=== PATIENT | male | born 1950 | race Caucasian/White ===

== ENCOUNTER 2023-01-02 13:41 | Inpatient (IN) | payer OTHER ==
[~2023-01-02] VITALS: Ht 172.7 cm; Wt 97.7 kg
[~2023-01-02 13:41] MED LIST: ASPI81CH43; GABA-339 PO; LISI10TA34 PO; METF-370 PO; SIMV10TA20 PO; TRAM50TA2
[2023-01-02] MEDS ORDERED: MORPHINE SULFATE 4 MG/ML SYR/VIAL IV ONE (13:45)
[2023-01-02] MEDS ORDERED: ASPirin 81 mg TAB PO ONE (13:45)
[2023-01-02] MEDS ORDERED: ONDANSETRON HCL 4 MG/2 ML VIAL IV ONE (13:45)
[2023-01-02 14:03] LABS: Basophils # (auto) 0 10 ^3/uL (0-0.2); Basophils % (auto) 0.5 % (0.0-2.0); Eosinophils # (auto) 0.1 10 ^3/uL (0-0.8); Eosinophils % (auto) 1.5 % (0.0-7.0); Hematocrit 39.8 % (41.0-53.0); Hemoglobin 13.3 g/dL (13.5-17.5); Lymphocytes # (auto) 0.8 10 ^3/uL (0.4-5.4); Lymphocytes % (auto) 11.9 % (10.0-50.0); Mean Corpuscular Hemoglobin 28.4 pg (28.0-32.0); Mean Corpuscular Hgb Conc. 33.5 g/dL (32.0-36.0); Mean Corpuscular Volume 84.8 fL (80.0-100.0); Monocytes # (auto) 0.6 10 ^3/uL (0-1.3); Monocytes % (auto) 7.9 % (0.0-12.0); Neutrophils # (auto) 5.5 10 ^3/uL (1.6-8.6); Neutrophils % (auto) 78.2 % (37.0-80.0); Nucleated Red Blood Cells % 0.1 %; Red Blood Cells 4.69 10^6/uL (4.5-5.90); White Blood Cell 7.1 10^3/uL (4.4-10.8)
[2023-01-02 14:22] LABS: INR 1.1 (0.9-1.15); Partial Thromboplastin Time 28.5 SEC (24.5-34.5); Prothrombin Time 11.5 sec (9.3-11.8)
[2023-01-02 14:31] LABS: Albumin 3.7 g/dL (3.4-5.0); Calcium 8.4 mg/dL (8.5-10.1); Magnesium 2.7 mg/dL (1.6-2.6); Potassium 3.8 mmol/L (3.5-5.1)
[2023-01-02 14:36] LABS: BUN/Creatinine Ratio 14.1 (10.0-20.0); Bilirubin, Total 0.6 mg/dL (0.2-1.0)
[2023-01-02] MEDS ORDERED: cloNIDine HCL 0.1 MG TAB PO ONE (15:00)
[2023-01-02 16:30] LABS: Urine Bacteria NONE SEEN /hpf (None Seen); Urine Blood Negative /uL (Negative); Urine Clarity Clear (Clear); Urine Color Colorless (Yellow); Urine Protein, UAD Negative (Negative); Urine Specific Gravity 1.008 (1.001-1.035); Urine Urobilinogen Normal (Negative); Urine WBC <1 /hpf (0 - 3); Urine pH 6.5 (5.0-8.0)
[2023-01-02] MEDS ORDERED: hydrALAZINE HCL 20 MG/ML VL IV PRN ×2 (16:30→18:30)
[2023-01-02] MEDS ORDERED: NITROGLYCERIN 0.4 MG SL TAB SL PRN (16:30)
[2023-01-02] MEDS ORDERED: MORPHINE SULFATE INJ 2 MG/ml SYRG IV PRN (16:30)
[2023-01-02 16:55] LABS: Cholesterol 117 mg/dL (< 200)
[2023-01-02 16:57] LABS: HDL Cholesterol 53 mg/dL (40-59); LDL Cholesterol 58 mg/dL (< 100); Triglycerides 74 mg/dL (< 150)
[2023-01-02 18:20] VITALS: PULSE 62; RESP 12; O2SAT 96
[2023-01-02] MEDS ORDERED: ASPirin 325 MG TAB PO ONE ×2 (18:30→19:15)
[2023-01-02] MEDS ORDERED: DEXTROSE (50%) 50ML SYRG IV PRN (18:30)
[2023-01-02] MEDS: SODIUM CHLORIDE 0.9% 1,000 ML IV SCH (18:51)
[2023-01-02 20:00] LABS: Cholesterol 129 mg/dL (< 200)
[2023-01-02 20:02] LABS: HDL Cholesterol 52 mg/dL (40-59); LDL Cholesterol 62 mg/dL (< 100); Triglycerides 69 mg/dL (< 150)
[2023-01-02] MEDS ORDERED: ATORVASTATIN 20 MG TAB PO SCH (22:00)
[2023-01-02] MEDS: ATORVASTATIN 20 MG TAB PO SCH (22:08)
[2023-01-02] MEDS: METOPROLOL TARTRATE 25 MG TAB PO SCH (22:33)
[2023-01-03] VITALS (11 sets, daily range): BP systolic 122–178; BP diastolic 36–79; PULSE 52–68; RESP 12–18; TEMP 97.3–98.5; O2SAT 94–98
[2023-01-03] MEDS: ACCU-CHEK COMFORT CURVE STRIP VI SCH ×4 (00:30→18:20)
[2023-01-03] MEDS: InsuLIN REG 1unit/0.01ml Soln (100units/ml) SC SCH ×4 (00:30→18:20)
[2023-01-03] MEDS ORDERED: ADENOSINE 92 MG in GIVE UN-DILUTED 0 ML IV ONE (08:00)
[2023-01-03] MEDS: SODIUM CHLORIDE 0.9% 1,000 ML IV SCH ×2 (09:00→23:33)
[2023-01-03] MEDS ORDERED: ASPirin 81 mg TAB PO SCH (10:00)
[2023-01-03] MEDS: ENOXAPARIN SOD 40 MG/0.4 ML SYRINGE SC SCH (10:03)
[2023-01-03] MEDS: ASPirin 81 mg TAB PO SCH (10:04)
[2023-01-03] MEDS: LISINOPRIL 10 MG TAB PO SCH (10:27)
[2023-01-03] MEDS: METOPROLOL TARTRATE 25 MG TAB PO SCH ×2 (10:28→21:36)
[2023-01-03 10:41] LABS: Basophils # (auto) 0.1 10 ^3/uL (0-0.2); Basophils % (auto) 1.2 % (0.0-2.0); Eosinophils # (auto) 0.2 10 ^3/uL (0-0.8); Eosinophils % (auto) 3.1 % (0.0-7.0); Hematocrit 36.9 % (41.0-53.0); Lymphocytes # (auto) 1.2 10 ^3/uL (0.4-5.4); Lymphocytes % (auto) 23.4 % (10.0-50.0); Mean Corpuscular Hemoglobin 27.7 pg (28.0-32.0); Mean Corpuscular Hgb Conc. 32.5 g/dL (32.0-36.0); Mean Corpuscular Volume 85.2 fL (80.0-100.0); Monocytes # (auto) 0.5 10 ^3/uL (0-1.3); Monocytes % (auto) 8.9 % (0.0-12.0); Neutrophils # (auto) 3.2 10 ^3/uL (1.6-8.6); Neutrophils % (auto) 63.4 % (37.0-80.0); Nucleated Red Blood Cells % 0.1 %; Red Blood Cells 4.33 10^6/uL (4.5-5.90); Red Cell Distribution Width 15.5 % (11.8-14.3); White Blood Cell 5.1 10^3/uL (4.4-10.8)
[2023-01-03 11:08] LABS: Albumin 3.2 g/dL (3.4-5.0); Calcium 8.4 mg/dL (8.5-10.1); Magnesium 2.8 mg/dL (1.6-2.6); Potassium 4.4 mmol/L (3.5-5.1)
[2023-01-03 11:16] LABS: Folate (Folic Acid) 11.45 ng/mL (5.38-24)
[2023-01-03 11:19] LABS: BUN/Creatinine Ratio 12.6 (10.0-20.0); Bilirubin, Total 0.7 mg/dL (0.2-1.0); Total Protein 6.3 g/dL (6.4-8.2)
[2023-01-03] MEDS ORDERED: IODIXANOL 320MG/ML 100ML BTL IV ONE (14:53)
[2023-01-03] MEDS ORDERED: LIDOCAINE 2%HCL (LOCAL ANESTH.) INJ 20ML MDV ONE (14:53)
[2023-01-03] MEDS ORDERED: fentaNYL CITRATE 100 MCG/2 ML VL ONE (14:55)
[2023-01-03] MEDS ORDERED: HEPARIN SODIUM (PORCINE) 5000 UNITS/ML 1ML VIAL ONE (14:55)
[2023-01-03] MEDS ORDERED: VERAPAMIL 2.5MG/ML INJ 2ML VIAL IV ONE (14:55)
[2023-01-03] MEDS ORDERED: MIDAZOLAM HCL 2MG/2ML 2ml VIAL (1mg/ml) ONE (14:56)
[2023-01-03] MEDS ORDERED: CYANOCOBALAMIN (B-12) 1000 MCG/1 ML VIAL IM ONE (15:00)
[2023-01-03] MEDS ORDERED: FUROSEMIDE 20 MG/2 ML VIAL ONE (15:25)
[2023-01-03] MEDS ORDERED: LORazepam 2MG/ML-1ML VIAL IV PRN (20:00)
[2023-01-03] MEDS: ATORVASTATIN 20 MG TAB PO SCH (21:35)
[2023-01-04] MEDS: InsuLIN REG 1unit/0.01ml Soln (100units/ml) SC SCH ×4 (00:17→18:00)
[2023-01-04] MEDS: ACCU-CHEK COMFORT CURVE STRIP VI SCH ×4 (00:18→18:00)
[2023-01-04 05:00] VITALS: BP 137/60; PULSE 60; RESP 19; TEMP 97.8; O2SAT 100
[2023-01-04 05:55] LABS: Basophils # (auto) 0 10 ^3/uL (0-0.2); Basophils % (auto) 0.7 % (0.0-2.0); Eosinophils # (auto) 0.1 10 ^3/uL (0-0.8); Eosinophils % (auto) 2.3 % (0.0-7.0); Hematocrit 36.7 % (41.0-53.0); Hemoglobin 12.4 g/dL (13.5-17.5); Lymphocytes # (auto) 0.9 10 ^3/uL (0.4-5.4); Lymphocytes % (auto) 13.5 % (10.0-50.0); Mean Corpuscular Hemoglobin 28.4 pg (28.0-32.0); Mean Corpuscular Hgb Conc. 33.7 g/dL (32.0-36.0); Mean Corpuscular Volume 84.4 fL (80.0-100.0); Monocytes # (auto) 0.5 10 ^3/uL (0-1.3); Monocytes % (auto) 8.5 % (0.0-12.0); Neutrophils # (auto) 4.8 10 ^3/uL (1.6-8.6); Nucleated Red Blood Cells % 0.1 %; Red Blood Cells 4.35 10^6/uL (4.5-5.90); Red Cell Distribution Width 15.4 % (11.8-14.3); White Blood Cell 6.4 10^3/uL (4.4-10.8)
[2023-01-04 06:08] LABS: Albumin 3.2 g/dL (3.4-5.0); Calcium 8.5 mg/dL (8.5-10.1); Magnesium 2.5 mg/dL (1.6-2.6); Potassium 3.8 mmol/L (3.5-5.1)
[2023-01-04 06:12] LABS: BUN/Creatinine Ratio 16.8 (10.0-20.0); Bilirubin, Total 0.7 mg/dL (0.2-1.0); Total Protein 6.6 g/dL (6.4-8.2)
[2023-01-04 08:00] VITALS: PULSE 59
[2023-01-04 08:06] LABS: RPR Non Reactive (Non Reactive)
[2023-01-04 09:00] VITALS: BP 166/96; PULSE 66; RESP 21; TEMP 97.3; O2SAT 99
[2023-01-04] MEDS: ENOXAPARIN SOD 40 MG/0.4 ML SYRINGE SC SCH (09:08)
[2023-01-04] MEDS: ASPirin 81 mg TAB PO SCH (09:08)
[2023-01-04] MEDS: METOPROLOL TARTRATE 25 MG TAB PO SCH (09:09)
[2023-01-04] MEDS: LISINOPRIL 10 MG TAB PO SCH (09:09)
[2023-01-04] MEDS ORDERED: HCTZ 25 MG TAB PO SCH (10:00)
[2023-01-04 13:00] VITALS: BP 151/70; PULSE 52; RESP 19; TEMP 97.8; O2SAT 97
[2023-01-04] MEDS ORDERED: HYDR25TA5 PO (13:11)
[2023-01-04] MEDS ORDERED: METF-370 PO (13:11)
[2023-01-04] MEDS ORDERED: ASPI-325 PO (13:11)
[2023-01-04] MEDS ORDERED: MET25T PO (13:11)
[2023-01-04] MEDS ORDERED: LISI10TA34 PO (13:11)
[2023-01-04] MEDS ORDERED: ATOR20TA50 PO (13:11)
[2023-01-04] MEDS ORDERED: [UNRECOGNIZED DRUG - CODE] PO (13:12)
[2023-01-04] MEDS: SODIUM CHLORIDE 0.9% 1,000 ML IV SCH (13:24)
[2023-01-04] MEDS ORDERED: CYANOCOBALAMIN (B-12) 1000 MCG/1 ML VIAL IM ONE ×2 (14:30→17:30)
[2023-01-04 16:37] VITALS: BP 151/70; PULSE 52
[2023-01-04 17:00] VITALS: BP 166/70; PULSE 61; RESP 17; TEMP 97.5; O2SAT 98
[2023-01-05] MEDS ORDERED: CYANOCOBALAMIN 500 MCG TAB PO SCH (10:00)
== END 2023-01-04 18:30 | disposition home or self-care (01) | DRG 281 ==
LOC: ER 13:41 → TELE 18:32 → TELE-E-ADS 01-03 10:54 → TELE-CENTR 01-03 17:59
PROVIDERS: ADMIT Internal Medicine; ATTEND Student in an Organized Health Care Education/Training Program
PROC: 4A023N7 Measurement of Cardiac Sampling and Pressure, Left Heart, Percutaneous Approach (ICD-10-PCS; principal; 2023-01-04)
PROC: B211YZZ Fluoroscopy of Multiple Coronary Arteries using Other Contrast (ICD-10-PCS; 2023-01-04)
PROC: B215YZZ Fluoroscopy of Left Heart using Other Contrast (ICD-10-PCS; 2023-01-04)
PROC: 4A033BC Measurement of Arterial Pressure, Coronary, Percutaneous Approach (ICD-10-PCS; 2023-01-04)
DX: I16.0 Hypertensive urgency (principal); I21.A1 Myocardial infarction type 2; E44.1 Mild protein-calorie malnutrition; E78.5 Hyperlipidemia, unspecified; D64.9 Anemia, unspecified; E66.9 Obesity, unspecified; Z68.32 Body mass index [BMI] 32.0-32.9, adult; E11.9 Type 2 diabetes mellitus without complications; F12.90 Cannabis use, unspecified, uncomplicated; I25.10 Atherosclerotic heart disease of native coronary artery without angina pectoris; E53.8 Deficiency of other specified B group vitamins; H53.2 Diplopia; Z79.82 Long term (current) use of aspirin; Z79.899 Other long term (current) drug therapy; Z82.49 Family history of ischemic heart disease and other diseases of the circulatory system; Z71.6 Tobacco abuse counseling; R26.9 Unspecified abnormalities of gait and mobility
CPT/HCPCS: 36415; 70450; 70551; 71045; 76937; 78452; 80053; 80061; 81001; 82306; 82607; 82746; 82962; 83036; 83735; 83880; 84100; 84443; 84484; 85025; 85379; 85610; 85730; 86592; 93005; 93017; 93306; 93458; 93571; 93886; 99152; 99153; G0378; J0153; J1815; J2250; J2405; Q9967